=== PATIENT | male | born 1980 | race Caucasian/White ===

== ENCOUNTER 2020-05-09 09:39 | Emergency (ER) | payer MEDICAID ==
[~2020-05-09] VITALS: Ht 167.6 cm; Wt 79.1 kg
[2020-05-09] MEDS ORDERED: sulfamethoxazole/trimethoprim DS (800/160mg) tablet PO ONE (10:40)
[2020-05-09] MEDS ORDERED: LIDOcaine 1% W/epiNEPHrine 1:200,000 10ml vial IJ ONE (10:40)
[2020-05-09] MEDS ORDERED: CEPH-572 PO (10:41)
[2020-05-09] MEDS ORDERED: SULF1TAB49 PO (10:41)
[2020-05-09] MEDS ORDERED: LIDOcaine 1% w/epiNEPHrine 1:200,000 30ml vial IJ ONE (10:45)
[2020-05-09 10:55] VITALS: BP 101/52
--- NOTE | 2020-05-09 11:14 | NUR ---
Called 's office in [place]; incident #[id number].
== END 2020-05-09 12:04 | disposition home or self-care (01) ==
LOC: ER 09:44
DX: N45.4 Abscess of epididymis or testis (principal); R11.2 Nausea with vomiting, unspecified; Z79.2 Long term (current) use of antibiotics; Y04.0XXA Assault by unarmed brawl or fight, initial encounter; Y93.89 Activity, other specified; Y92.89 Other specified places as the place of occurrence of the external cause; Y99.8 Other external cause status
CPT/HCPCS: 10060; 55100; 99283; 99284